=== PATIENT | female | born 1985 | race Caucasian/White ===

== ENCOUNTER 2020-12-30 14:34 | Observation (INO) ==
[2020-12-30] MEDS ORDERED: Melatonin 3 MG TABLET PO PRN (17:24)
[2020-12-30] MEDS ORDERED: Acetaminophen 325 MG TABLET PO PRN (17:24)
[2020-12-30] MEDS ORDERED: Naloxone 0.4 MG/ML INJ IVP PRN (17:24)
[2020-12-30] MEDS ORDERED: Ondansetron ODT 4 MG TAB.RAPDIS SL PRN (17:24)
[2020-12-30] MEDS: *HR* OxyCODONE Immed Rel 5 MG TABLET PO PRN (18:28)
[2020-12-30 19:44] LABS: Alanine Aminotransferase 17 Units/L (7-52); Albumin 3.5 g/dL (3.5-5.7); Alkaline Phosphatase 110 Units/L (34-104); Aspartate Amino Transferase 10 Units/L (13-39); Bilirubin,Direct 0.1 mg/dL (0.0-0.2); Bilirubin,Indirect 0.2 mg/dL (0.0-1.0); Bilirubin,Total 0.3 mg/dL (0.3-1.0); Ferritin 55 ng/mL (10-120); Globulin 3.4 g/dL (2.4-3.5); Iron < 10 mcg/dL (50-170); Total Protein 6.9 g/dL (6.4-8.9); Transferrin 240 mg/dL (203-362)
[2020-12-30] MEDS: Piperacillin/Tazobactam 3.375 GM in 0.9 % Sodium Chloride Mini Bag 100 ML IVPB SCH (19:51)
[2020-12-30] MEDS ORDERED: *HR* LORazepam 2 MG/ML VIAL IVP ONE (20:17)
[2020-12-30] MEDS ORDERED: *HR* HYDROcodone/Acet 5/325 mg TABLET PO ONE (22:07)
[2020-12-31] MEDS: *HR* OxyCODONE Immed Rel 5 MG TABLET PO PRN ×4 (00:48→18:35)
[2020-12-31 03:06] LABS: Hematocrit 21.9 % (35.3-44.9); Hemoglobin 6.4 g/dL (11.5-15.4); Mean Corpuscular HGB Conc 29.2 g/dL (31.6-35.5); Mean Corpuscular Hemoglobin 20.4 pg (28.0-33.3); Platelet Count 318 K/mcL (140-400); Red Blood Count 3.13 M/mcL (3.82-4.97); White Blood Count 5.2 K/mcL (4.3-11.1)
[2020-12-31 03:26] LABS: BUN/Creatinine Ratio 16 (6-26); Blood Urea Nitrogen 9 mg/dL (6-20); Calcium 8.1 mg/dL (8.6-10.3); Carbon Dioxide 25 mEq/L (23-29); Chloride 104 mEq/L (98-107); Glucose 104 mg/dL (70-105); Osmolality,Calculated 281 (280-300); Potassium 3.2 mEq/L (3.5-5.1); Sodium 136 mEq/L (136-145); eGFR For African Americans > 60 (> 60); eGFR For Non-African Americans > 60 (> 60)
[2020-12-31] MEDS: Piperacillin/Tazobactam 3.375 GM in 0.9 % Sodium Chloride Mini Bag 100 ML IVPB SCH ×3 (03:38→18:35)
[2020-12-31] MEDS ORDERED: Potassium Chloride 20 MEQ, Lidocaine 1% 2 ML in 0.9 % Sodium Chloride 250 ML IVPB ONE (04:11)
[2020-12-31] MEDS ORDERED: *HR* LORazepam 2 MG/ML VIAL IVP ONE (06:12)
[2020-12-31] MEDS ORDERED: cefTRIAXone 1,000 MG in Water for inj. (sterile) 10 ML IVP SCH (09:00)
[2020-12-31] MEDS: Iron Sucrose Complex 250 MG in 0.9 % Sodium Chloride 250 ML IVPB SCH (09:18)
[2020-12-31] MEDS ORDERED: Isovue-370 500 ML BOTTLE IVP ONE ×2 (09:39→15:04)
[2020-12-31] MEDS ORDERED: 0.9 % Sodium Chloride 250 ML ONE (10:13)
[2020-12-31 10:16] LABS: Hematocrit 25.8 % (35.3-44.9); Hemoglobin 7.6 g/dL (11.5-15.4)
[2020-12-31] MEDS: Morphine Sulfate 2 MG/ML SYRINGE IVP PRN ×3 (10:31→20:22)
[2020-12-31 15:17] LABS: Hematocrit 29.5 % (35.3-44.9); Hemoglobin 8.7 g/dL (11.5-15.4)
[2020-12-31] MEDS ORDERED: *HR* LORazepam 0.5 MG TABLET PO ONE (17:25)
[2020-12-31 20:44] LABS: Hematocrit 28.9 % (35.3-44.9); Hemoglobin 8.7 g/dL (11.5-15.4)
[2021-01-01] MEDS: *HR* OxyCODONE Immed Rel 5 MG TABLET PO PRN ×2 (01:27→08:09)
[2021-01-01] MEDS: Piperacillin/Tazobactam 3.375 GM in 0.9 % Sodium Chloride Mini Bag 100 ML IVPB SCH (02:47)
[2021-01-01] MEDS: Morphine Sulfate 2 MG/ML SYRINGE IVP PRN (04:51)
[2021-01-01 07:01] VITALS: BP 135/84
[2021-01-01] MEDS: Iron Sucrose Complex 250 MG in 0.9 % Sodium Chloride 250 ML IVPB SCH (08:10)
[2021-01-01] MEDS ORDERED: Ketorolac 15 MG/ML VIAL IM PRN (09:36)
[2021-01-01 10:03] LABS: Hematocrit 29.8 % (35.3-44.9); Hemoglobin 9.2 g/dL (11.5-15.4)
[2021-01-01 10:18] LABS: BUN/Creatinine Ratio 15 (6-26); Blood Urea Nitrogen 8 mg/dL (6-20); Calcium 9.1 mg/dL (8.6-10.3); Carbon Dioxide 24 mEq/L (23-29); Chloride 103 mEq/L (98-107); Glucose 89 mg/dL (70-105); Magnesium 2.2 mg/dL (1.6-2.6); Osmolality,Calculated 282 (280-300); Phosphorous 3.3 mg/dL (2.7-4.5); Potassium 3.6 mEq/L (3.5-5.1); Sodium 137 mEq/L (136-145); eGFR For African Americans > 60 (> 60); eGFR For Non-African Americans > 60 (> 60)
== END 2021-01-01 11:42 | disposition home or self-care (01) ==
LOC: 3BNU → SUATTDRO 16:34
PROVIDERS: ADMIT Family Medicine; ATTEND Internal Medicine